=== PATIENT | male | born 1985 | race Two or more races ===

== ENCOUNTER 2017-07-04 05:11 | Emergency (ER) | payer OTHER ==
--- NOTE | 2017-07-04 05:24 | PDOC ---
History of Present Illness - General Stated Complaint: ABD PAIN Time Seen by Provider: 07/04/17 05:24 - History of Present Illness Initial Comments: 07/04/17 05:37 Mr. Davison is a 32 yo male w/ no pmh who presents complaining of a 4 hour history of severe epigastric pain. He rates the pain as 10/10 and says that it feels throbbing. It woke him from sleep this AM at 0100. It does not feel tearing or sharp in nature. He also reports having a lot of gas when the pain started and that he ate pizza for dinner last night. The patient denies chest pain, shortness of breath, headache and dizziness. Denies fever, chills, nausea, vomit, diarrhea and constipation. Denies dysuria, frequency, urgency and hematuria. Allergies: NKDA Past History - Past Medical History Allergies/Adverse Reactions: Allergies Allergy/AdvReac Type Severity Reaction Status Date / Time No Known Allergies Allergy Verified 07/04/17 05:24 Home Medications: Ambulatory Orders Permethrin 5% Topical Cream [Elimite -] 1 applic TP ONCE #1 tube 10/07/15 - Suicide/Smoking/Psychosocial Hx Smoking History: Never smoked Hx Alcohol Use: No Drug/Substance Use Hx: No Substance Use Type: None Review of Systems - Review of Systems Comments:: 07/04/17 05:40 GENERAL/CONSTITUTIONAL: No fever or chills. No weakness. HEAD, EYES, EARS, NOSE AND THROAT: No change in vision. No ear pain or discharge. No sore throat. CARDIOVASCULAR: No chest pain or shortness of breath RESPIRATORY: No cough, wheezing, or hemoptysis. GASTROINTESTINAL: +10/10 pain he localizes above the umbilicus GENITOURINARY: No dysuria, frequency, or change in urination. MUSCULOSKELETAL: No joint or muscle swelling or pain. No neck or back pain. SKIN: No rash NEUROLOGIC: No headache, vertigo, loss of consciousness, or change in strength/ sensation. ENDOCRINE: No increased thirst. No abnormal weight change HEMATOLOGIC/LYMPHATIC: No anemia, easy bleeding, or history of blood clots. ALLERGIC/IMMUNOLOGIC: No hives or skin allergy. *Physical Exam - Physical Exam Comments: 07/04/17 05:41 GENERAL: Patient appears acutely uncomfortable. Awake, alert, and fully oriented HEAD: No signs of trauma, normocephalic, atraumatic EYES: PERRLA, EOMI, sclera anicteric, conjunctiva clear ENT: Auricles normal inspection, hearing grossly normal, nares patent, oropharynx clear without exudates. Moist mucosa NECK: Normal ROM, supple, no lymphadenopathy, JVD, or masses LUNGS: No distress, speaks full sentences, clear to auscultation bilaterally HEART: Regular rate and rhythm, normal S1 and S2, no murmurs, rubs or gallops, peripheral pulses normal and equal bilaterally. ABDOMEN: +TTP midline /epigastrically. Soft, normoactive bowel sounds. No guarding, no rebound. No masses EXTREMITIES: Normal inspection, Normal range of motion, no edema. No clubbing or cyanosis. NEUROLOGICAL: Cranial nerves II through XII grossly intact. Normal speech, normal gait, no focal sensorimotor deficits SKIN: Warm, Dry, normal turgor, no rashes or lesions noted. 07/04/17 05:41 ED Treatment Course - LABORATORY CBC & Chemistry Diagram: 07/04/17 05:48 07/04/17 05:48 Medical Decision Making - Medical Decision Making 07/04/17 06:27 Mr. Laney Brooks reports resolution of his pain following GI cocktail. Given this, labs grossly wnl, and history consistent w/ reflux will discharge with instructions to f/u outpatient for further reflux evaluation as needed. *DC/Admit/Observation/Transfer Diagnosis at time of Disposition: Reflux gastritis - Discharge Dispostion Disposition: HOME - Referrals Referrals: STAFF,NOT ON [Primary Care Provider] - - Patient Instructions Printed Discharge Instructions: DI for Gastroesophageal Reflux Disease (GERD) - - Child Additional Instructions: Please return if any increase or return of pain, fever, chills, or any other concerning symptoms. - Post Discharge Activity
[2017-07-04 05:27] VITALS: TEMP 97.8; BMI 19.0
[2017-07-04] MEDS ORDERED: MAG HYDROX/AL HYDROX/SIMETH 30 ML UNIT-DOSE CUP PO ONE (05:32)
[2017-07-04] MEDS ORDERED: LIDOCAINE VISCOUS 2% ORAL/TOP 20 ML UNIT-DOSE CUP MM ONE (05:32)
[2017-07-04] MEDS ORDERED: PANTOPRAZOLE SOD 40 MG SUSPENSION PACKET PO ONE (05:33)
[2017-07-04] MEDS ORDERED: SODIUM CHLORIDE 1,000 ML IV STA (05:36)
[2017-07-04] MEDS ORDERED: PANTOPRAZOLE 40 MG TABLET (FP) ONE (05:39)
[2017-07-04] MEDS ORDERED: LIDOCAINE VISCOUS 2% ORAL/TOP 20 ML UNIT-DOSE CUP ONE (05:39)
[2017-07-04] MEDS ORDERED: MAG HYDROX/AL HYDROX/SIMETH 30 ML UNIT-DOSE CUP ONE (05:40)
--- NOTE | 2017-07-04 05:47 | PDOC ---
Attending Attestation - Resident Resident Name: Nikko Tapia - ED Attending Attestation I have performed the following: I have examined & evaluated the patient, The case was reviewed & discussed with the resident, I agree w/resident's findings & plan - HPI HPI: 07/04/17 05:43 Pt comes with epigastric pain. He has no PMHx and he has no other complaints. He ate pizza last night. He has not had alcohol in months. - Physicial Exam PE: 07/04/17 05:44 No rebound, guarding, minimal tenderness at the epigastrum. He has no flank pain and he has gassy bowel sounds. He denies penile or scrotal pain or swelling. - Medical Decision Making 07/04/17 06:28 All labs are normal; pt feels better with fluids and he will be discharged home. This was gas pain.
[2017-07-04 05:58] LABS: BASOPHIL 0.5 % (0-2.0); EOSINOPHIL 2.8 % (0-4.5); MCH 28.3 pg (25.7-33.7); MEAN CELL VOLUME 83.1 fl (80-96); MEAN PLT VOLUME 9.8 fl (7.5-11.1); NEUTROPHILS 67.7 % (42.8-82.8); PLATELET COUNT 239 K/MM3 (134-434); RDW 13.3 % (11.9-15.9); WHITE BLOOD COUNT 8.5 K/mm3 (4.0-10.0)
[2017-07-04 06:21] LABS: ALBUMIN 4.1 g/dl (3.4-5.0); ANION GAP 6 (8-16); BILIRUBIN,TOTAL 0.6 mg/dL (0.2-1.0); CALCIUM 8.9 mg/dL (8.5-10.1); CO2 27 mmol/L (21-32); GLUCOSE,RANDOM 112 mg/dL (74-106); SGOT/AST 19 U/L (15-37); SGPT/ALT 13 U/L (12-78); TOT PROT 7.2 g/dl (6.4-8.2)
[2017-07-04 06:22] LABS: ALK PHOS 100 U/L (45-117)
[2017-07-04 06:52] VITALS: BP 130/86; PULSE 86
== END 2017-07-04 06:53 | disposition home or self-care (01) ==
LOC: JER 05:11
PROC: 3E0337Z Introduction of Electrolytic and Water Balance Substance into Peripheral Vein, Percutaneous Approach (ICD-10-PCS; principal; 2017-07-04)
DX: K21.9 Gastro-esophageal reflux disease without esophagitis (principal)
CPT/HCPCS: 36415; 80053; 83690; 85025; 96360; 99282-25

== ENCOUNTER 2017-07-04 11:55 | Emergency (ER) | payer OTHER ==
[2017-07-04 12:08] VITALS: BMI 19.0
[2017-07-04] MEDS ORDERED: ONDANSETRON 4 MG/2 ML VIAL IVPUSH ONE (12:17)
[2017-07-04] MEDS ORDERED: morphine CARPU-JECT 4 MG/1 ML DISP.SYRIN IVPUSH ONE (12:17)
[2017-07-04] MEDS ORDERED: SODIUM CHLORIDE 1,000 ML IV SCH (12:30)
[2017-07-04] MEDS ORDERED: ONDANSETRON 4 MG/2 ML VIAL ONE (12:37)
[2017-07-04] MEDS ORDERED: morphine SULFATE 4 MG/ML VIAL ONE (12:37)
--- NOTE | 2017-07-04 12:58 | PDOC ---
History of Present Illness <Christian Apodaca - Last Filed: 07/04/17 15:52> - General History Source: Patient Exam Limitations: No Limitations - History of Present Illness Initial Comments: 07/04/17 12:58 The patient is a 32 year old male, with no significant past medical history, who presents to the emergency department with epigastric pain since earlier this morning. The patient reports he was at [facility] at approximately 01:00, where he had labs done, which were negative, and patient was discharged after symptoms improved. Patient reports his abdominal pain resolved, but after eating soup about 1 hour ago, he began to develop severe epigastric pain radiating to his right side. He reports associated nausea, but denies any vomiting, diarrhea, or constipation. He denies any fever, chills, cough, headache, or dizziness. He denies any chest pain, shortness of breath, diaphoresis, or palpitations. He denies any recent travel or sick contacts. Allergies: NKDA Past Surgical History: None reported Social History: Non smoker. No ETOH or recreational drug use. <Efrain Camacho - Last Filed: 07/04/17 16:01> - General Chief Complaint: Pain Stated Complaint: REVISIT, ABD PAIN Time Seen by Provider: 07/04/17 12:16 Past History - Past Medical History COPD: No - Suicide/Smoking/Psychosocial Hx Smoking History: Never smoked Hx Alcohol Use: No Drug/Substance Use Hx: No Substance Use Type: None <Christian Apodaca - Last Filed: 07/04/17 15:52> <Efrain Camacho - Last Filed: 07/04/17 16:01> - Past Medical History Allergies/Adverse Reactions: Allergies Allergy/AdvReac Type Severity Reaction Status Date / Time No Known Allergies Allergy Verified 07/04/17 05:24 Home Medications: Ambulatory Orders Ondansetron [Zofran *Odt*] 8 mg SL TID #30 od.tablet 07/04/17 Oxycodone HCl/Acetaminophen [Percocet 5-325 mg Tablet] 1 - 2 tab PO Q4H #20 tablet MDD 6 07/04/17 Review of Systems - Review of Systems Able to Perform ROS?: Yes Comments:: 07/04/17 12:58 GENERAL/CONSTITUTIONAL: No fever or chills. No weakness. HEAD, EYES, EARS, NOSE AND THROAT: No change in vision. No ear pain or discharge. No sore throat. CARDIOVASCULAR: No chest pain or shortness of breath. RESPIRATORY: No cough, wheezing, or hemoptysis. GASTROINTESTINAL: Yes epigastric abdominal pain, nausea. No vomiting, diarrhea or constipation. GENITOURINARY: No dysuria, frequency, or change in urination. MUSCULOSKELETAL: No joint or muscle swelling or pain. No neck or back pain. SKIN: No rash NEUROLOGIC: No headache, vertigo, loss of consciousness, or change in strength/ sensation. ENDOCRINE: No increased thirst. No abnormal weight change. HEMATOLOGIC/LYMPHATIC: No anemia, easy bleeding, or history of blood clots. ALLERGIC/IMMUNOLOGIC: No hives or skin allergy. <Efrain Camacho - Last Filed: 07/04/17 16:01> *Physical Exam - Vital Signs Last Vital Signs Temp Pulse Resp BP Pulse Ox 98.3 F 72 18 120/72 100 07/04/17 12:06 07/04/17 12:06 07/04/17 12:06 07/04/17 12:06 07/04/17 12:06 <Christian Apodaca - Last Filed: 07/04/17 15:52> - Vital Signs Last Vital Signs Temp Pulse Resp BP Pulse Ox 98.3 F 72 18 120/72 100 07/04/17 12:06 07/04/17 12:06 07/04/17 12:06 07/04/17 12:06 07/04/17 12:06 - Physical Exam Comments: 07/04/17 12:59 GENERAL: Awake, alert, and fully oriented, in no acute distress HEAD: No signs of trauma EYES: PERRLA, EOMI, sclera anicteric, conjunctiva clear ENT: Auricles normal inspection, hearing grossly normal, nares patent, oropharynx clear without exudates. Moist mucosa NECK: Normal ROM, supple, no lymphadenopathy, JVD, or masses LUNGS: Breath sounds equal, clear to auscultation bilaterally. No wheezes, and no crackles HEART: Regular rate and rhythm, normal S1 and S2, no murmurs, rubs or gallops ABDOMEN: Soft, nontender, normoactive bowel sounds. No guarding, no rebound. No masses EXTREMITIES: Normal range of motion, no edema. No clubbing or cyanosis. No cords, erythema, or tenderness NEUROLOGICAL: Cranial nerves II through XII grossly intact. Normal speech, normal gait SKIN: Warm, Dry, normal turgor, no rashes or lesions noted. <Efrain Camacho - Last Filed: 07/04/17 16:01> ED Treatment Course - LABORATORY CBC & Chemistry Diagram: 07/04/17 12:33 07/04/17 12:33 - RADIOLOGY Radiology Studies Ordered: Category Date Time Status GALLBLADDER US [US] Stat Ultrasound 07/04/17 12:18 Ordered <Christian Apodaca - Last Filed: 07/04/17 15:52> - LABORATORY CBC & Chemistry Diagram: 07/04/17 12:33 07/04/17 12:33 - RADIOLOGY Radiograph Interpretation: 07/04/17 15:58 EXAM: US Abdomen INTERPRETED BY: Dr. Gallo REVIEWED BY: Dr. Apodaca IMPRESSION: Gallbladder polyps, otherwise normal abdominal sonogram no evidence of cholelithiasis or acute cholecystitis. <Efrain Camacho - Last Filed: 07/04/17 16:01> *DC/Admit/Observation/Transfer - Discharge Dispostion Admit: No - Attestations Physician Attestion: 07/04/17 12:57 I, Dr. Christian Apodaca, attest that this document has been prepared under my direction and personally reviewed by me in its entirety. I further attest, that it accurately reflects all work, treatment, procedures and medical decision -making performed by me. <Christian Apodaca - Last Filed: 07/04/17 15:52> - Attestations Scribe Attestion: 07/04/17 12:59 Documentation prepared by Efrain Camacho, acting as center medical specialist for Christian Apodaca DO. <Efrain Camacho - Last Filed: 07/04/17 16:01> Diagnosis at time of Disposition: Gallbladder polyp, Abdominal pain - Discharge Dispostion Disposition: HOME Condition at time of disposition: Unchanged/Unknown - Prescriptions Prescriptions: Ondansetron [Zofran *Odt*] 8 mg SL TID #30 od.tablet Oxycodone HCl/Acetaminophen [Percocet 5-325 mg Tablet] 1 - 2 tab PO Q4H #20 tablet MDD 6 - Referrals Referrals: STAFF,NOT ON [Primary Care Provider] - Jeremy Mederos MD [Staff Physician] - - Patient Instructions Printed Discharge Instructions: DI for Biliary Colic Additional Instructions: Clear liquids only. Zofran for Nausea, Percocet for pain. Follow up with Dr. Mederos.
[2017-07-04 13:07] LABS: URINE APPEARANCE CLEAR; URINE BILIRUBIN NEGATIVE (NEGATIVE); URINE BLOOD NEGATIVE (NEGATIVE); URINE COLOR STRAW; URINE GLUCOSE (UA) NEGATIVE (NEGATIVE); URINE KETONE NEGATIVE (NEGATIVE); URINE NITRITE NEGATIVE (NEGATIVE); URINE PROTEIN NEGATIVE (NEGATIVE); URINE UROBILINOGEN NEGATIVE mg/dL (0.2-1.0)
[2017-07-04 13:08] LABS: BASOPHIL 0.3 % (0-2.0); EOSINOPHIL 1.4 % (0-4.5); MCH 27.9 pg (25.7-33.7); MCHC 33.3 g/dl (32.0-35.9); MEAN CELL VOLUME 83.9 fl (80-96); MEAN PLT VOLUME 9.8 fl (7.5-11.1); NEUTROPHILS 76.1 % (42.8-82.8); PLATELET COUNT 248 K/MM3 (134-434); RDW 13.4 % (11.9-15.9); WHITE BLOOD COUNT 9.5 K/mm3 (4.0-10.0)
[2017-07-04] MEDS ORDERED: SODIUM CHLORIDE 1,000 ML IV STA (13:18)
[2017-07-04 13:19] LABS: INR 1.24 (0.82-1.09)
[2017-07-04 13:34] LABS: ALBUMIN 4.6 g/dl (3.4-5.0); ANION GAP 4 (8-16); BILIRUBIN,TOTAL 1.2 mg/dL (0.2-1.0); CALCIUM 9.5 mg/dL (8.5-10.1); CO2 28 mmol/L (21-32); GLUCOSE,RANDOM 115 mg/dL (74-106); SGOT/AST 20 U/L (15-37); SGPT/ALT 12 U/L (12-78); TOT PROT 8.4 g/dl (6.4-8.2)
[2017-07-04 13:35] LABS: ALK PHOS 99 U/L (45-117)
[2017-07-04 16:29] VITALS: BP 115/75; PULSE 82; TEMP 98
[2017-07-04 17:17] LABS: URINE LEUK ESTERASE Negative (NEGATIVE)
== END 2017-07-04 16:29 | disposition home or self-care (01) ==
LOC: JER 11:55
PROC: 3E033NZ Introduction of Analgesics, Hypnotics, Sedatives into Peripheral Vein, Percutaneous Approach (ICD-10-PCS; principal; 2017-07-04)
PROC: 3E033GC Introduction of Other Therapeutic Substance into Peripheral Vein, Percutaneous Approach (ICD-10-PCS; 2017-07-04)
PROC: 3E0337Z Introduction of Electrolytic and Water Balance Substance into Peripheral Vein, Percutaneous Approach (ICD-10-PCS; 2017-07-04)
DX: K82.4 Cholesterolosis of gallbladder (principal)
CPT/HCPCS: 36415; 76705-TC; 80053; 81003; 83690; 85025; 85610; 96361; 96374; 96375; 99283-25

== ENCOUNTER 2020-11-17 13:26 | Emergency (ER) | payer OTHER ==
[2020-11-17 13:36] VITALS: BP 114/69; PULSE 98; BMI 19.0
[2020-11-17] MEDS ORDERED: ACETAMINOPHEN 500 MG TABLET (FP) PO ONE (14:45)
[2020-11-17] MEDS ORDERED: ACETAMINOPHEN 500 MG TABLET (FP) ONE (14:57)
[2020-11-17 16:19] VITALS: TEMP 99
[2020-11-18 10:07] LABS: SARS-CoV-2 NAA Not Detected (Not Detected)
== END 2020-11-17 16:21 | disposition home or self-care (01) ==
LOC: JER 13:26
DX: R05 Cough (principal); R50.9 Fever, unspecified; Z11.52 Encounter for screening for COVID-19
CPT/HCPCS: 71046-TC-FY; 93005; 93010; 99285-25; C9803; U0003; U0005